=== PATIENT | male | born 1945 | race Caucasian/White ===

== ENCOUNTER 2022-05-14 15:34 | Outpatient (CLI) | payer MEDICARE | END 2022-05-14 15:35 | disposition home or self-care (01) | LOC: CSHLAB 15:34 | PROVIDERS: ATTEND Internal Medicine | DX: Z20.822 Contact with and (suspected) exposure to COVID-19 (principal) | CPT/HCPCS: U0003; U0005 ==

== ENCOUNTER 2022-05-18 10:27 | Outpatient (CLI) | payer MEDICARE | END 2022-05-18 10:28 | disposition home or self-care (01) | LOC: CSHCP 10:27 | PROVIDERS: ATTEND Internal Medicine | DX: I50.1 Left ventricular failure, unspecified (principal); R06.02 Shortness of breath; R94.2 Abnormal results of pulmonary function studies | CPT/HCPCS: 94060; 94726; 94729; 94760 ==